=== PATIENT | male | born 1990 | race Caucasian/White ===

== ENCOUNTER 2021-05-01 01:28 | Emergency (ER) | payer OTHER ==
[~2021-05-01] VITALS: Ht 188 cm; Wt 100.0 kg
[2021-05-01 01:40] VITALS: BP 124/57
--- NOTE | 2021-05-01 02:22 | PHYS DOC ---
Adult General Chief Complaint Chief Complaint: LACERATION/AVULSION HPI HPI The patient is a 31-year-old male who presents for evaluation of a laceration to his right upper forehead sustained prior to arrival at work at [employer] when a box fell on his head. He states it was a relatively small box. No loss of consciousness, nausea or vomiting or amnesia to events. He states his head does not really hurt. He went to the nurse's office at the warehouse and the wound was cleaned and Steri-Stripped and he was sent here for further evaluation. No other injury during the episode. Tetanus is up-to-date per patient. Review of Systems Review of Systems A 12 point review of systems was completed and was negative except where noted in HPI above. Allergies Allergies Allergies Coded Allergies Type Severity Reaction Last Updated Verified No Known Drug Allergies 05/01/21 No Physical Exam Physical Exam 31-year-old male appearing nontoxic and in no acute distress. Head is normocephalic and with a 2 cm well approximated linear hemostatic superficial obliquely oriented laceration to the right superior forehead. No hemotympanum, no instability of the midface, no malocclusion, no other signs of trauma to face or scalp or head or neck. Neck is supple and nontender. Oropharynx is moist. Lungs are clear to auscultation at all stations. There is a normal S1 and S2 without rubs or gallops and capillary refill is appropriate, less than 2 seconds globally. Abdomen is soft, nontender nondistended. Skin is warm and dry without cyanosis, clubbing or edema. Psychiatrically, the patient demonstrates appropriate mood and affect and is alert. Neurologically, cranial nerves II through XII are intact and there are no lateralizing deficits seen. Speech is normal. Language is normal. Coordination is normal. There is no dysmetria finger-nose or uate-yo-pzeh bilaterally. Strength is 5 out of 5 in all joints of bilateral upper and lower extremities. Sensation is intact light touch in bilateral upper and lower extremities. Patient ambulates with a narrow, steady, non-ataxic gait here in the emergency department and is alert and oriented x4. EKG EKG [] Radiology/Procedures Radiology/Procedures Indication: R forehead laceration Procedure: Wound was copiously washed out and cleaned and Dermabond was used to reapproximate the wound edges. Total repaired wound length: 2cm The patient tolerated the procedure well. Complications: none. Course & Med Decision Making Course & Med Decision Making 31-year-old gentleman presenting for head injury. No indication for brain imaging by [place] rules. Well-appearing, nonfocal neurologic examination. Superficial right forehead laceration repaired with Dermabond as per procedure note. Patient tolerated well. Cleared to go back to work. Ibuprofen as needed for discomfort. Patient understands that if he feels worse instead of better or develops other new symptoms of concern that he will need to return to the emergency department immediately for reevaluation. All questions are answered. Dragon Disclaimer Dragon Disclaimer This electronic medical record was generated, in whole or in part, using a voice recognition dictation system. Departure Departure Impression: Primary Impression: Laceration of forehead without complication Disposition: 01 HOME / SELF CARE / HOMELESS Condition: IMPROVED Patient Instructions: Laceration Care, Adult Additional Instructions: Follow-up very closely with your primary care doctor in the office in the next 3 to 5 days for reevaluation of your symptoms and to discussion of next best steps in care. You may take ibuprofen and/or Tylenol as needed for discomfort. Wash the area gently with soap and water but do not scrub. The skin glue will wear off gradually over the next week or two. Return to the emergency department right away for worsening symptoms of any kind or with any other new symptoms of concern. YULIET DAVIS MD May 01, 2021 02:22
== END 2021-05-01 02:35 | disposition home or self-care (01) ==
LOC: ER 01:28
DX: S01.81XA Laceration without foreign body of other part of head, initial encounter (principal); W20.8XXA Other cause of strike by thrown, projected or falling object, initial encounter; Y93.89 Activity, other specified; Y92.89 Other specified places as the place of occurrence of the external cause; Y99.8 Other external cause status
CPT/HCPCS: 12011; 99282